=== PATIENT | male | born 2000 | race Caucasian/White ===

== ENCOUNTER 2022-05-11 15:06 | Emergency (ER) | payer OTHER, SELFPAY ==
--- NOTE | ~2022-05-11 | XR_ITS ---
EXAMINATION: XR toe 5th RT min 2V DATE: 05/11/2022 16:03 INDICATION: Right fifth toe pain TECHNIQUE: Dorsal plantar, lateral and oblique views of the right fifth toe were obtained. COMPARISON: None FINDINGS: Nondisplaced intra-articular fractures at the plantar/medial base of the fifth proximal phalanx. Alig nment remains near-anatomic with no significant fracture gap or incongruity at the proximal articular surface. No other fractures identified. Joint spaces are normal. IMPRESSION: Nondisplaced intra-articular fracture at the base of the right fifth possible thighs. Reviewed, dictated and finalized at location B. IMPRESSION: Nondisplaced intra-articular fracture at the base of the right fifth possible t highs.
[2022-05-11 15:19] VITALS: BP 140/93; PULSE 99; RESP 14; TEMP 35.9; O2SAT 100
[2022-05-11] MEDS: ACETAMINOPHEN 500 MG TABLET 1000 MG PO (15:49)
[2022-05-11 16:09] VITALS: TEMP 36.8
--- NOTE | 2022-05-11 16:20 | ED.LOWEXIN ---
HPI - Extremity Injury (Lower) General Chief Complaint: Extremity Injury, Lower Stated Complaint: toe injury Time Seen by Provider: 05/11/22 15:37 Source: RN notes reviewed History of Present Illness HPI Narrative: Patient presents emergency department from home for right toe pain. Patient states proximally 3 minutes prior to arrival he was walking with his flip-flops on when he stubbed his right toe on a railing he states he has had pain in the right toe since that time worse with walking states he not taking thing for pain he denies any other trauma or injury denies any numbness or tingling Related Data Allergies Allergy/AdvReac Type Severity Reaction Status Date / Time ibuprofen Allergy Mild HIVES Verified 05/11/22 15:35 Review of Systems Review of Systems: Gen.: Denies fevers or chills Musculoskeletal: See HPI Neuro: Denies numbness, tingling, weakness Skin: Denies rash Endo: Denies DM PMFSH Past Medical History Medical History (Updated 05/11/22 @ 16:22 by Scot Hurst DO) Patient denies significant medical history Social History Social History (Updated 05/11/22 @ 16:21 by Scot Hurst DO) Smoking status: Never smoker Exam Narrative: APPEARANCE: No acute distress, nontoxic, resting in bed Eyes: EOMI HEENT: Normocephalic, atraumatic, RESPIRATORY: No respiratory distress MUSCULOSKELETAl: The right fifth toe is tender to palpation with mild swelling and ecchymosis there is a small amount of dried blood over the medial aspect of the nail however the nail is intact and unable to be lifted, there is no tenderness of toes 1 through 4 there is no tenderness of the remainder of the foot dorsalis pedis pulse 2+ neurovascular intact NEURO: Awake and alert. Following commands, speech normal, no focal deficits SKIN:: Warm, dry. Normal Color no rash or lesions Course Course Emergency Course: Discussed with patient results of workup and diagnosis. Discussed need for follow-up with primary care, proper use of medication, and reasons to return to the emergency department. Patient understands and agrees to current treatment plan Vital Signs Vital signs: Vital Signs Temperature 96.7 F L 05/11/22 15:19 Pulse Rate 99 05/11/22 15:19 Respiratory Rate 14 05/11/22 15:19 Blood Pressure 140/93 H 05/11/22 15:19 Pulse Oximetry 100 05/11/22 15:19 Oxygen Delivery Room Air 05/11/22 15:19 Temperature 98.2 F 05/11/22 16:09 Pulse Rate 99 05/11/22 15:19 Respiratory Rate 14 05/11/22 15:19 Blood Pressure 140/93 H 05/11/22 15:19 Pulse Oximetry 100 05/11/22 15:19 Oxygen Delivery Room Air 05/11/22 15:19 MDM - Extremity Injury (Lower) Imaging Data Radiologist's impression: ITS Impressions Toe X-Ray 05/11/22 16:06 IMPRESSION: Nondisplaced intra-articular fracture at the base of the right fifth possible thighs. Discharge Plan Discharge Clinical Impression: Fracture of fifth toe, right, closed Patient Disposition: Home, Self-Care Condition: Stable Instructions: Antibiotic Form, Toe Fracture (ED) Additional Instructions: Return for increasing pain nodes or tingling of the extremities or any other symptoms or concern. Take [id number] Tylenol for pain as directed on the bottle Follow-up/Referrals: Thiago,ESAU Gann [Primary Care Provider] - 2 Days Time of Disposition: 16:26
== END 2022-05-11 16:40 | disposition home or self-care (01) ==
LOC: ANHED 16:40
PROVIDERS: Emergency Provider Emergency Medicine; PCP Physician Assistant
DX: S92.514A Nondisplaced fracture of proximal phalanx of right lesser toe(s), initial encounter for closed fracture (principal); W22.8XXA Striking against or struck by other objects, initial encounter
CPT/HCPCS: 73660; 99284; A9270

== ENCOUNTER 2024-01-15 19:38 | Emergency (ER) | payer OTHER, SELFPAY ==
[2024-01-15 19:48] VITALS: BP 146/93; PULSE 118; RESP 18; TEMP 36.7; O2SAT 99
[2024-01-15 20:35] LABS: Influenza A QL RT-PCR Negative (Negative); Influenza B QL RT-PCR Negative (Negative); RSV RNA, RT-PCR Positive (Negative); SARS-CoV-2 RNA PCR Negative (Negative)
--- NOTE | 2024-01-15 21:02 | ED.URI ---
HPI - URI/Sore Throat General Chief Complaint: Upper Respiratory Infection Stated Complaint: SOB Time Seen by Provider: 01/15/24 20:58 History of Present Illness HPI Narrative: Patient is a 23-year-old male presenting with nasal congestion, nausea, cough. States that his mom and grandma have had RSV this last week. States that he thinks it is spreading all around. His nose feels irritated and he has had a cough. He has vomited twice. No chest pain or shortness of breath. No abdominal pain. No leg swelling. No further complaints. Related Data Allergies Allergy/AdvReac Type Severity Reaction Status Date / Time ibuprofen Allergy Mild HIVES Verified 05/11/22 15:35 Review of Systems Review of Systems: All systems reviewed & are unremarkable except as noted in HPI and below PMFSH Past Medical History Medical History Patient denies significant medical history Social History Social History Smoking status: Never smoker Exam Narrative: GENERAL: Well-appearing, In no acute distress HEAD: Normocephalic, atraumatic. EYES: PERRLA and EOMI. ENT: + rhinorrhea, Mucous membranes moist. NECK: Supple. CHEST: Clear to auscultation. No respiratory distress. HEART: Regular rate and rhythm ABDOMEN: Soft, nontender, nondistended EXTREMITIES: Normal range of motion. SKIN: Warm, dry, no rash. NEURO: No focal deficits. Alert and oriented x3. PSYCH: Normal mood and affect. Course Vital Signs Vital signs: Vital Signs Temperature 98.1 F 01/15/24 19:48 Pulse Rate 118 H 01/15/24 19:48 Respiratory Rate 18 01/15/24 19:48 Blood Pressure 146/93 H 01/15/24 19:48 Pulse Oximetry 99 01/15/24 19:48 Oxygen Delivery Room Air 01/15/24 19:48 Temperature 98.1 F 01/15/24 19:48 Pulse Rate 118 H 01/15/24 19:48 Respiratory Rate 18 01/15/24 19:48 Blood Pressure 146/93 H 01/15/24 19:48 Pulse Oximetry 99 01/15/24 19:48 Oxygen Delivery Room Air 01/15/24 19:48 MDM - URI/Sore Throat MDM Narrative Medical decision making narrative: 23-year-old male presenting with URI symptoms. Vitals are stable. Exam is unremarkable. Patient is well-appearing, in no acute distress. He is positive for RSV. Discussed appropriate supportive care and PCP follow-up. Appropriate return precautions given. Patient is agreeable with this plan. Discharged in stable condition. Differential Diagnosis Differential diagnosis: Likely upper respiratory infection, viral infection and influenza Medical Records Attestation: I reviewed the patient's medical records. Lab Data Attestation: I reviewed the patient's lab results. Labs: Lab Results 01/15/24 Range/Units 19:54 Influenza A (RT-PCR) Negative (Negative) Influenza B (RT-PCR) Negative (Negative) RSV (RT-PCR) Positive A (Negative) SARS-CoV-2 RNA (RT-PCR) Negative (Negative) Critical Care Time Critical Care Time Critical Care Time: No Discharge Plan Discharge Clinical Impression: Respiratory syncytial virus (RSV) Patient Disposition: Home, Self-Care Condition: Stable Instructions: Antibiotic Form, RSV (Respiratory Syncytial Virus) Infection (ED) Additional Instructions: You tested positive for RSV today. Please use Tylenol and ibuprofen for body aches or fevers. You may use your inhaler as needed if you start wheezing. Follow-up with your PCP. If your symptoms suddenly worsen or other concerning symptoms arise, please return to the ER. Prescriptions: New albuterol sulfate 90 mcg/actuation HFA aerosol inhaler 1 inh inhalation QID PRN (Reason: shortness of breath or wheezing) Qty: 8.5 0RF Follow-up/Referrals: Thiago,ESAU Gann [Primary Care Provider] -
--- NOTE | 2024-01-16 11:06 | PC.NURSE ---
changed albuterol inhaler to albuterol neb ampules per pt request. Dr Vega verbal order RB okayed the change. Spoke with pharmacist at [facility].
== END 2024-01-15 21:39 | disposition home or self-care (01) ==
LOC: ANHED 21:13
PROVIDERS: Emergency Medicine; Emergency Provider Emergency Medicine; PCP Physician Assistant
DX: J22 Unspecified acute lower respiratory infection (principal); B97.4 Respiratory syncytial virus as the cause of diseases classified elsewhere; Z20.822 Contact with and (suspected) exposure to COVID-19
CPT/HCPCS: 87637; 99283

== ENCOUNTER 2024-07-07 19:26 | Emergency (ER) | payer OTHER, SELFPAY ==
[2024-07-07 20:11] VITALS: BP 144/80; PULSE 100; RESP 22; TEMP 36.6; O2SAT 96
--- NOTE | 2024-07-07 21:05 | PC.NURSE ---
Pt came up to desk stating his symptoms have resolved and he is going home. Pt leaves in NAD at 210
== END 2024-07-07 21:43 | disposition left against medical advice (07) ==
PROVIDERS: PCP Physician Assistant
DX: H57.12 Ocular pain, left eye (principal)
CPT/HCPCS: 99199

== ENCOUNTER 2024-08-10 22:47 | Emergency (ER) | payer OTHER, SELFPAY ==
--- NOTE | ~2024-08-10 | XR_ITS ---
Portable chest x-ray Comparison: 08/03/2005 Clinical History: Cough Findings: Lungs are clear, without focal consolidation or pleural effusion. Cardiomediastinal silho uette is stable. Bones and soft tissues are unremarkable. Impression: Normal chest. Reviewed, dictated and finalized at location . Impression: Normal chest.
[2024-08-10 23:08] VITALS: BP 140/86; PULSE 106; RESP 20; TEMP 36.6; O2SAT 100
--- NOTE | 2024-08-11 00:12 | ED.GENADULT ---
HPI - General Adult General Chief complaint: Anxiety Stated complaint: anxiety Time Seen by Provider: 08/10/24 23:27 History of Present Illness HPI narrative: 24-year-old male with autism presents to the emergency department for evaluation after having episodes agitation. Mother states that last night and tonight patient had episodes of agitation. Last night patient was in the y[place] and neighbors called the police. Tonight patient became agitated again but police did not need to be called. Patient does not have a primary care physician. Related Data Allergies Allergy/AdvReac Type Severity Reaction Status Date / Time ibuprofen Allergy Mild HIVES Verified 08/10/24 23:15 Review of Systems Review of Systems: All systems reviewed & are unremarkable except as noted in HPI and below PMFSH Past Medical History Medical History Patient denies significant medical history Social History Social History Smoking status: Never smoker Substance use type: does not use Exam Narrative: APPEARANCE: Well appearing, no pain, no distress, well-nourished. HEAD: normocephalic, atraumatic. EYES: PERRLA/EOMI, conjunctivae clear. NOSE: Normal no drainage EARS:TMS clear with good light reflex. THROAT: Pharynx clear, no exudate. NECK: Supple. No adenopathy, no masses. RESPIRATORY: Airway patent, respirations nonlabored. Clear to auscultation bilaterally, no rales, rhonchi, wheezing. CARDIOVASCULAR: Regular rate and rhythm without murmurs rubs or gallops. ABDOMINAL: Soft, nontender, nondistended, normal bowel sounds MUSCULOSKELETAL: Moves all extremities. Strength/ROM intact, No edema, No calf tenderness. NEURO: Alert. Cranial nerves II through XII intact. Good gait. Good coordination SKIN: Warm, dry. Normal Color Course Course Emergency Course: Patient had no episodes of agitation the emergency department. No evidence of underlying infection was identified. Patient was well-appearing at time of discharge. Vital Signs Vital signs: Vital Signs Temperature 97.8 F 08/10/24 23:08 Pulse Rate 106 H 08/10/24 23:08 Respiratory Rate 20 08/10/24 23:08 Blood Pressure 140/86 08/10/24 23:08 Pulse Oximetry 100 08/10/24 23:08 Oxygen Delivery Room Air 08/10/24 23:08 Temperature 97.8 F 08/10/24 23:08 Pulse Rate 89 08/11/24 02:13 Respiratory Rate 15 08/11/24 02:13 Blood Pressure 134/74 08/11/24 02:13 Pulse Oximetry 100 08/11/24 02:13 Oxygen Delivery Room Air 08/10/24 23:08 Medical Decision Making MDM Narrative Medical decision making narrative: 24-year-old male with history of autism and anxiety presented emergency department for evaluation for some increased agitation. Patient was well-appearing in the emergency department. No evidence of underlying infection. Differential Diagnosis Differential Diagnosis: Urinary tract infection, pneumonia, COVID a, anxiety, agitation, autism Vital Signs Vital Signs: Vital Signs Temperature 97.8 F 08/10/24 23:08 Pulse Rate 106 H 08/10/24 23:08 Respiratory Rate 20 08/10/24 23:08 Blood Pressure 140/86 08/10/24 23:08 Pulse Oximetry 100 08/10/24 23:08 Oxygen Delivery Room Air 08/10/24 23:08 Temperature 97.8 F 08/10/24 23:08 Pulse Rate 89 08/11/24 02:13 Respiratory Rate 15 08/11/24 02:13 Blood Pressure 134/74 08/11/24 02:13 Pulse Oximetry 100 08/11/24 02:13 Oxygen Delivery Room Air 08/10/24 23:08 Lab Data Lab results reviewed: Yes I reviewed the patient's lab results. Labs: Lab Results 08/11/24 Range/Units 00:18 Influenza A (RT-PCR) Negative (Negative) Influenza B (RT-PCR) Negative (Negative) RSV (RT-PCR) Negative (Negative) SARS-CoV-2 RNA (RT-PCR) Negative (Negative) Discharge Plan Discharge Clinical Impression: Autism, Anxiety, Agitation Patient Dis
[2024-08-11] MEDS: LORazepam (*CRX) 1 MG TABLET PO (00:48)
[2024-08-11 00:59] LABS: Influenza A QL RT-PCR Negative (Negative); Influenza B QL RT-PCR Negative (Negative); RSV RNA, RT-PCR Negative (Negative); SARS-CoV-2 RNA PCR Negative (Negative)
[2024-08-11 02:13] VITALS: BP 134/74; PULSE 89; RESP 15; O2SAT 100
== END 2024-08-11 02:14 | disposition home or self-care (01) ==
PROVIDERS: Emergency Provider Emergency Medicine
DX: R45.1 Restlessness and agitation (principal); F41.9 Anxiety disorder, unspecified; F84.0 Autistic disorder; Z11.52 Encounter for screening for COVID-19
CPT/HCPCS: 71045; 87637; 99283; A9270

== ENCOUNTER 2024-08-28 12:45 | Emergency (ER) | payer OTHER, SELFPAY ==
[2024-08-28 12:51] VITALS: BP 175/109; PULSE 95; RESP 20; TEMP 36.6; O2SAT 99
--- NOTE | 2024-08-28 13:15 | ED.EAR ---
HPI - Ear Problem General Chief complaint: Ear Stated complaint: R ear pain Time Seen by Provider: 08/28/24 12:47 History of Present Illness HPI Narrative: Patient is a 24-year-old male who presents ER with right ear pain. Ongoing over last week. Originally so she with a URI but then the ear pain persisted. He has been trying nasal decongestants as well as yawning and chewing gum try to alleviate discomfort in his right ear. No pain on left side. No difficulty hearing. No spinning dizziness. Concerned he may have infection. Related Data Allergies Allergy/AdvReac Type Severity Reaction Status Date / Time ibuprofen Allergy Mild HIVES Verified 08/28/24 13:22 Review of Systems Constitutional: Constitutional: Reports no additional constitutional complaints ENT: Denies vertigo, Denies dizziness, Reports nasal congestion and Reports sore throat Comments: right ear pain Cardiovascular: Cardiovascular: Reports no additional cardiovascular complaints Respiratory: Respiratory: Reports no additional respiratory complaints PMFSH Past Medical History Medical History Patient denies significant medical history Social History Social History Smoking status: Never smoker Substance use type: does not use Exam Narrative: GENERAL: Well-appearing, well-nourished, and in no acute distress. HEAD: Normocephalic, atraumatic. EYES: PERRL and EOMI. ENT: Mucous membranes moist. Bulging erythematous right tympanic membrane. Normal left TM. CHEST: Clear to auscultation. No respiratory distress. HEART: Regular rate and rhythm. Normal peripheral pulses. EXTREMITIES: Normal range of motion. No edema. NEURO: Alert and oriented x3. PSYCH: Normal mood and affect. Course Course Emergency Course: Discharge home with Augmentin and pain medication. Vital Signs Vital signs: Vital Signs Temperature 97.9 F 08/28/24 12:51 Pulse Rate 95 08/28/24 12:51 Respiratory Rate 20 08/28/24 12:51 Blood Pressure 175/109 H 08/28/24 12:51 Pulse Oximetry 99 08/28/24 12:51 Oxygen Delivery Room Air 08/28/24 12:51 Temperature 97.9 F 08/28/24 12:51 Pulse Rate 95 08/28/24 12:51 Respiratory Rate 20 08/28/24 12:51 Blood Pressure 175/109 H 08/28/24 12:51 Pulse Oximetry 99 08/28/24 12:51 Oxygen Delivery Room Air 08/28/24 12:51 Medical Decision Making Vital Signs Vital Signs: Vital Signs Temperature 97.9 F 08/28/24 12:51 Pulse Rate 95 08/28/24 12:51 Respiratory Rate 20 08/28/24 12:51 Blood Pressure 175/109 H 08/28/24 12:51 Pulse Oximetry 99 08/28/24 12:51 Oxygen Delivery Room Air 08/28/24 12:51 Temperature 97.9 F 08/28/24 12:51 Pulse Rate 95 08/28/24 12:51 Respiratory Rate 20 08/28/24 12:51 Blood Pressure 175/109 H 08/28/24 12:51 Pulse Oximetry 99 08/28/24 12:51 Oxygen Delivery Room Air 08/28/24 12:51 Discharge Plan Discharge Clinical Impression: Otitis media Patient Disposition: Home, Self-Care Condition: Stable Instructions: Antibiotic Form, Earache (ED) Additional Instructions: Return to the ER if you have fever over 101F, you cannot keep down food/water, or you have other concerns. Prescriptions: New hydrocodone-acetaminophen 5-325 mg tablet 1 tablet PO Q6H PRN (Reason: pain, moderate) Qty: 10 0RF amoxicillin-pot clavulanate 875-125 mg tablet 1 tablet PO Q12H Qty: 20 0RF No Action lorazepam [Ativan] 0.5 mg tablet 0.5 mg PO BID PRN (Reason: agitation) Qty: 14 0RF Follow-up/Referrals: Opal Magana DO [Physician] - 1 Week PHYSICIAN,WATER PU[employer] INSTALLER [Primary Care Provider] -
[2024-08-28 13:23] VITALS: BP 149/88; PULSE 106; RESP 15; O2SAT 98
[2024-08-28 13:38] VITALS: BP 143/85; PULSE 94; RESP 17; TEMP 36.4; O2SAT 97
== END 2024-08-28 13:40 | disposition home or self-care (01) ==
LOC: ANHED 13:30
PROVIDERS: Emergency Provider Emergency Medicine
DX: H66.91 Otitis media, unspecified, right ear (principal)
CPT/HCPCS: 99283

== ENCOUNTER 2024-11-06 13:20 | Emergency (ER) | payer OTHER, SELFPAY ==
--- NOTE | ~2024-11-06 | CT_ITS ---
EXAMINATION: CT abdomen pelvis w con DATE: 11/06/2024 16:07 INDICATION: Left inguinal pain TECHNIQUE: Computed tomography (CT) of the abdomen and pelvis was performed with 100 mL Omnipaque-350 intravenous contrast. Automated exposure control and iterative reconstruction technique were employe d. The dose-length product was 1780.65 mGy-cm. COMPARISON: None FINDINGS: Lung bases are clear. Heart size is normal. No pericardial or pleural effusion. Diffuse hepatic steat osis with focal sparing along the gallbladder fossa. Gallbladder, spleen, pancreas, bilateral adrenal glands and kidneys are normal. Bowels including the appendix are normal. No free intraperitoneal gas or fluid. No pathologically enlarged abdominal or pelvic lymphadenopathy. No inguinal hernia. Mild t horacic spondylosis with chronic appearing minimal to mild anterior wedging of T8-T11. IMPRESSION: 1. No acute intracranial process. 2. Diffuse hepatic steatosis. Reviewed, dictated and finalized at location A. RINARY SURGERY TECHNICIAN
[2024-11-06 13:47] VITALS: BP 158/93; PULSE 109; RESP 17; TEMP 36.5; O2SAT 97
--- NOTE | 2024-11-06 14:23 | ED_ITS ---
HPI - Abdominal Pain General Chief Complaint: Urogenital-Male Stated Complaint: R sided groin pain Time Seen by Provider: 11/06/24 13:55 History of Present Illness HPI narrative: Pt presents wioth p[ain in left inguinal area for several days. Pt denies dysuria or frequency. Pt says worse with movement. Pt denies vomiting or diarrhea or constipation. Related Data Allergies Allergy/AdvReac Type Severity Reaction Status Date / Time ibuprofen Allergy Mild HIVES Verified 08/28/24 13:22 Review of Systems 2 Review of Systems: All systems reviewed & are unremarkable except as noted in HPI and below PMFSH Past Medical History Medical History Patient denies significant medical history Social History Social History Smoking status: Never smoker Substance use type: does not use Exam 2 Const: General: healthy appearing and no acute distress Nutritional Appearance: well nourished Orientation/consciousness: patient oriented x3 Limitations: no limitations Resp: Effort & Inspection: normal respiratory effort Auscultation: clear to auscultation bilaterally Cardio: Rate: regular rate Rhythm: regular rhythm GI: GI Palp: Yes Soft to palpation and Yes Tenderness to palpation present (GI) (left inguinal groove without definite hernia) Auscultation: normal bowel sounds : General: Yes bladder normal to palpation Male General Exam: Yes normal external exam Scrotum: scrotum normal Testes: Testes normal Skin: General skin exam: normal color Wounds: no wounds Neuro: General: patient oriented x3, moves all extremities, no focal motor deficits and CN's II-XI intact bilaterally Speech: normal speech Extrem: General: normal to inspection and no clubbing, cyanosis or edema Psych: Mental Status: mental status grossly normal Affect: normal affect Attitude: cooperative Course Vital Signs Vital signs: Vital Signs Temperature 97.7 F 11/06/24 13:47 Pulse Rate 109 H 11/06/24 13:47 Respiratory Rate 17 11/06/24 13:47 Blood Pressure 158/93 H 11/06/24 13:47 Pulse Oximetry 97 11/06/24 13:47 Temperature 97.6 F 11/06/24 15:27 Pulse Rate 89 11/06/24 15:27 Respiratory Rate 16 11/06/24 15:27 Blood Pressure 122/77 11/06/24 15:27 Pulse Oximetry 100 11/06/24 15:27 MDM - Abdominal Pain MDM Narrative Medical decision making narrative: Pt hasw left inguina pain. could not palpate a definite hernia but will get labs UA and scan to rule out hernia. ct neg, labs unremarkable. UA +. home on antibiotics. Lab Data 11/06/24 15:12 11/06/24 15:12 Labs: Lab Results 11/06/24 11/06/24 Range/Units 15:12 16:40 WBC 10.3 H (4.5-10.0) K/mm3 RBC 5.67 (4.6-6.20) M/mm3 Hgb 16.0 (14.0-18.0) g/dL Hct 47.0 (42.0-52.0) % MCV 82.9 (80-100) fl MCH 28.2 (26-34) pg MCHC 34.0 (32-36) g/dl RDW 12.7 (11.5-14.5) % Plt Count 301 (150-375) k/mm3 MPV 10.1 (7.4-10.4) fl Immature Gran % (Auto) 0.3 (0-0.5) % Neut % (Auto) 70.8 (45.5-73.1) % Lymph % (Auto) 18.1 L (18.3-44.2) % [place] % (Auto) 6.3 (2.6-8.5) % Eos % (Auto) 3.6 (0-4.4) % Baso % (Auto) 0.9 (0.2-1.2) % Lymph # (Auto) 1.87 (0.9-3.2) K/mm3 [place] # (Auto) 0.7 H (0.1-0.6) K/mm3 Eos # (Auto) 0.4 H (0-0.3) K/mm3 Baso # (Auto) 0.1 (0.0-0.1) K/mm3 Abs Immat Gran (auto) 0.03 (0.00-0.031) K/mm3 Absolute Neuts (auto) 7.3 H (1.3-6.7) K/mm3 Absolute Nucleated RBC 0.000 (0.0-0.012) K/mm3 Nucleated RBC % 0.0 (0.0-0.2) % Sodium 140 (137-145) mmol/L Potassium 4.0 (3.4-5.0) mmol/L Chloride 105 (98-107) mmol/L Carbon Dioxide 26 (22-30) mmol/L Anion Gap 9 (4-12) mmol/L BUN 17 (9-20) mg/dL Creatinine 0.90 (0.7-1.3) mg/dL Estim Creat Clear Calc Not Reportable Estimated GFR > 60 (59 - ) Glucose 126 H (65-110) mg/dL Calcium 9.4 (8.4-10.2) mg/dL Total Bilirubin 0.8 (0.2-1.3) mg/dL AST 40 (17-59) U/L ALT 75 H (6-50) U/L Alkaline Phosphatase 63 (38-126) U/L Total Protein 8.0 (6.3-8.2) g/dL Albumin 4.8 (3.5-5.1) g/dL Urine Color Yellow (Yellow) Urine Appearance Clear (Clear) Urine pH 6.5 (5.0-9.0) Ur Specific [place] > 1.045 H (1.001-1.035) Urine Protein Negative (Negative) mg/dL Urine Glucose (UA) Negative (Negative) mg/dL Urine Ketones Negative (Negative) mg/dL Ur Blood (Man) Negative (Negative) Urine Nitrate Negative (Negative) Urine Bilirubin Negative (Negative) Urine Urobilinogen 1.0 (<2.0) mg/dL Leukocyte Esterase Rfl Trace H (Negative) MAURICIO/UL Urine RBC 0-2 (0-2) /hpf Urine WBC 11-20 H (0-3) /hpf Ur Squamous Epith Cells None seen (Few) /hpf Urine Bacteria None seen /hpf Urine Casts 0-2 Imaging Data Radiologist's impression: ITS Impressions Abdomen/Pelvis CT 11/06/24 16:29 IMPRESSION: 1. No acute intracranial process. 2. Diffuse hepatic steatosis. Discharge Plan Discharge Clinical Impression: Urinary tract infection Patient Disposition: Home, Self-Care Condition: Stable Instructions: Antibiotic Form, Urinary Tract Infection in Men (ED) Patient Language: [place] Prescriptions: New cefdinir 300 mg capsule 300 mg PO Q12H Qty: 10 0RF No Action lorazepam [Ativan] 0.5 mg tablet 0.5 mg PO BID PRN (Reason: agitation) Qty: 14 0RF hydrocodone-acetaminophen 5-325 mg tablet 1 tablet PO Q6H PRN (Reason: pain, moderate) Qty: 10 0RF amoxicillin-pot clavulanate 875-125 mg tablet 1 tablet PO Q12H Qty: 20 0RF Follow-up/Referrals: [place],Yogi Davis MD [Primary Care Provider] -
[2024-11-06 15:19] LABS: Basophils Absolute Auto 0.1 K/mm3 (0.0-0.1); Basophils Percent Auto 0.9 % (0.2-1.2); Eosinophils Absolute Auto 0.4 K/mm3 (0-0.3); Eosinophils Percent Auto 3.6 % (0-4.4); Immature Granulocyte Absolute 0.03 K/mm3 (0.00-0.031); Immature Granulocyte Percent A 0.3 % (0-0.5); Lymphocytes Absolute Auto 1.87 K/mm3 (0.9-3.2); Lymphocytes Percent Auto 18.1 % (18.3-44.2); Mean Corpuscular Hemoglobin 28.2 pg (26-34); Mean Corpuscular Volume 82.9 fl (80-100); Mean Platelet Volume 10.1 fl (7.4-10.4); Monocytes Absolute Auto 0.7 K/mm3 (0.1-0.6); Monocytes Percent Auto 6.3 % (2.6-8.5); Neutrophils Absolute Auto 7.3 K/mm3 (1.3-6.7); Neutrophils Percent Auto 70.8 % (45.5-73.1); Platelet Count Result 301 k/mm3 (150-375); Red Blood Count 5.67 M/mm3 (4.6-6.20); Red Cell Distribution Width 12.7 % (11.5-14.5); White Blood Count 10.3 K/mm3 (4.5-10.0)
[2024-11-06 15:27] VITALS: BP 122/77; PULSE 89; RESP 16; TEMP 36.4; O2SAT 100
--- NOTE | 2024-11-06 15:28 | PC.NURSE ---
Patient declined a straight catheter for a urine specimen.
[2024-11-06 15:46] LABS: Alanine Aminotransferase 75 U/L (6-50); Albumin Level 4.8 g/dL (3.5-5.1); Alkaline Phosphatase 63 U/L (38-126); Anion Gap 9 mmol/L (4-12); Aspartate Amino Transferase 40 U/L (17-59); Bilirubin,Total 0.8 mg/dL (0.2-1.3); Blood Urea Nitrogen 17 mg/dL (9-20); Calcium 9.4 mg/dL (8.4-10.2); Carbon Dioxide 26 mmol/L (22-30); Chloride 105 mmol/L (98-107); Estimated Glomerular Filt Rate > 60; Glucose 126 mg/dL (65-110); Sodium 140 mmol/L (137-145)
[2024-11-06] MEDS: SODIUM CHLORIDE 0.9% IV 1,000 ML 999 ML IV CONT (15:50)
[2024-11-06 17:11] LABS: Add Urine Microscopic? YES; Appearance Urine Clear (Clear); Bacteria Urine None Seen /hpf; Bilirubin Urine Negative (Negative); Blood Urine Negative (Negative); Color Urine Yellow (Yellow); Glucose Urine UA Negative (Negative); Ketones Urine Negative (Negative); Leukocyte Esterase Ur Trace LEU/UL (Negative); Nitrate Urine Negative (Negative); Non Pathogenic Casts 0-2; Protein Urine Negative (Negative); RBC Urine 0-2 /hpf (0-2); Specific Grav Ur > 1.045 (1.001-1.035); Squamous Epithelial Cell Urine None Seen /hpf (Few); pH Urine 6.5 (5.0-9.0)
[2024-11-06 17:37] VITALS: BP 132/71; PULSE 68; RESP 14; TEMP 36.5; O2SAT 99
== END 2024-11-06 17:38 | disposition home or self-care (01) ==
PROVIDERS: Emergency Provider Emergency Medicine; PCP Family Medicine
DX: N39.0 Urinary tract infection, site not specified (principal); K76.0 Fatty (change of) liver, not elsewhere classified
CPT/HCPCS: 36415; 74177; 80053; 81001; 85025; 87086; 96360; 99284; J7030; Q9967

== ENCOUNTER 2024-11-30 23:33 | Emergency (ER) | payer OTHER, SELFPAY ==
--- NOTE | ~2024-11-30 | CT_ITS ---
EXAMINATION: CT abdomen pelvis w con DATE: 12/01/2024 03:37 INDICATION: Right lower quadrant abdominal pain. TECHNIQUE: Computed tomography (CT) of the abdomen and pelvis was performed with 100 mL Omnipaque 350 intravenous contrast. Automated exposure control and iterative reconstruction technique were employe d. The dose-length product was 2052.27 mGy-cm. COMPARISON: CT abdomen and pelvis 11/06/2024 FINDINGS: The visualized portions of the lung bases are clear without pneumonia or pleural effusion. The heart size is normal. No pericardial effusion. There is diffuse hepatic steatosis. The gallbladde r, spleen, pancreas, adrenal glands, and kidneys are normal. There are no dilated loops of bowel. The appendix is normal. There are no pathologically enlarged lymph nodes. There is no free intraperitone al fluid. There is mild thoracic and lumbar spondylosis. IMPRESSION: 1. Diffuse hepatic steatosis. Reviewed, dictated and finalized at location A. [place] SOLAR ADVISOR
[2024-11-30 23:35] VITALS: BP 151/77; PULSE 91; RESP 20; TEMP 36.4; O2SAT 98
[2024-12-01 00:01] LABS: Add Urine Microscopic? NO; Appearance Urine Clear (Clear); Bilirubin Urine Negative (Negative); Blood Urine Negative (Negative); Color Urine Yellow (Yellow); Glucose Urine UA Negative (Negative); Ketones Urine Negative (Negative); Leukocyte Esterase Ur Negative LEU/UL (Negative); Nitrate Urine Negative (Negative); Protein Urine Negative (Negative); Specific Grav Ur 1.024 (1.001-1.035)
--- NOTE | 2024-12-01 02:35 | ED_ITS ---
HPI - General Adult General Chief complaint: Abdominal Pain Stated complaint: uti? Time Seen by Provider: 12/01/24 01:44 History of Present Illness HPI narrative: Patient 24-year-old gentleman who presents emergency department with chief complaint of right lower quadrant abdominal pain patient reports he has pain in the right inguinal area reports he is concerned that he may have a UTI as he had 1 last month. Patient states that he has no fever denies penile discharge denies scrotal pain Related Data Allergies Allergy/AdvReac Type Severity Reaction Status Date / Time ibuprofen Allergy Mild HIVES Verified 11/30/24 23:38 Review of Systems 2 Review of Systems: A 10 system review of systems was completed on the patient and is negative except for what is stated in the HPI. Nursing and ancillary documentation was reviewed. PMFSH Past Medical History Medical History Patient denies significant medical history Social History Social History Smoking status: Never smoker Substance use type: does not use Exam 2 Narrative: GENERAL: Well-appearing, well-nourished, and in no acute distress. HEAD: Normocephalic, atraumatic. EYES: PERRLA and EOMI. ENT: Nares clear, no rhinorrhea or epistaxis. Mucous membranes moist. NECK: Supple. CHEST: Clear to auscultation. No respiratory distress. HEART: Regular rate and rhythm. No murmur heard. Normal peripheral pulses. ABDOMEN: Soft, tenderness in the right lower quadrant right inguinal area, nondistended, normal active bowel sounds. : No scrotal tenderness, no testicle tenderness no erythema no penile discharge EXTREMITIES: Normal range of motion. No edema. SKIN: Warm, dry, no rash. NEURO: No focal deficits. Alert and oriented x3. PSYCH: Normal mood and affect. Course Vital Signs Vital signs: Vital Signs Temperature 36.4 C L 11/30/24 23:35 Pulse Rate 91 11/30/24 23:35 Respiratory Rate 20 11/30/24 23:35 Blood Pressure 151/77 H 11/30/24 23:35 Pulse Oximetry 98 11/30/24 23:35 Oxygen Delivery Room Air 11/30/24 23:35 Temperature 36.4 C L 11/30/24 23:35 Pulse Rate 91 11/30/24 23:35 Respiratory Rate 20 11/30/24 23:35 Blood Pressure 151/77 H 11/30/24 23:35 Pulse Oximetry 98 11/30/24 23:35 Oxygen Delivery Room Air 11/30/24 23:35 Medical Decision Making MDM Narrative Medical decision making narrative: Differential diagnosis include intra-abdominal infection, UTI, ureterolithiasis, hernia CT scan of the abdomen pelvis showed no acute abnormality urinalysis was within normal limits CBC and CMP were within normal limits Vital Signs Vital Signs: Vital Signs Temperature 36.4 C L 11/30/24 23:35 Pulse Rate 91 11/30/24 23:35 Respiratory Rate 20 11/30/24 23:35 Blood Pressure 151/77 H 11/30/24 23:35 Pulse Oximetry 98 11/30/24 23:35 Oxygen Delivery Room Air 11/30/24 23:35 Temperature 36.4 C L 11/30/24 23:35 Pulse Rate 91 11/30/24 23:35 Respiratory Rate 20 11/30/24 23:35 Blood Pressure 151/77 H 11/30/24 23:35 Pulse Oximetry 98 11/30/24 23:35 Oxygen Delivery Room Air 11/30/24 23:35 Lab Data 12/01/24 02:57 12/01/24 02:58 Labs: Lab Results 11/30/24 12/01/24 12/01/24 Range/Units 23:48 02:57 02:58 WBC 10.0 (4.5-10.0) K/mm3 RBC 5.11 (4.6-6.20) M/mm3 Hgb 14.3 (14.0-18.0) g/dL Hct 42.7 (42.0-52.0) % MCV 83.6 (80-100) fl MCH 28.0 (26-34) pg MCHC 33.5 (32-36) g/dl RDW 12.4 (11.5-14.5) % Plt Count 253 (150-375) k/mm3 MPV 10.1 (7.4-10.4) fl Immature Gran % (Auto) 0.3 (0-0.5) % Neut % (Auto) 53.8 (45.5-73.1) % Lymph % (Auto) 32.1 (18.3-44.2) % [place] % (Auto) 8.5 (2.6-8.5) % Eos % (Auto) 4.5 H (0-4.4) % Baso % (Auto) 0.8 (0.2-1.2) % Lymph # (Auto) 3.19 (0.9-3.2) K/mm3 [place] # (Auto) 0.9 H (0.1-0.6) K/mm3 Eos # (Auto) 0.5 H (0-0.3) K/mm3 Baso # (Auto) 0.1 (0.0-0.1) K/mm3 Abs Immat Gran (auto) 0.03 (0.00-0.031) K/mm3 Absolute Neuts (auto) 5.4 (1.3-6.7) K/mm3 Absolute Nucleated RBC 0.000 (0.0-0.012) K/mm3 Nucleated RBC % 0.0 (0.0-0.2) % Sodium 138 (137-145) mmol/L Potassium 4.0 (3.4-5.0) mmol/L Chloride 103 (98-107) mmol/L Carbon Dioxide 28 (22-30) mmol/L Anion Gap 7 (4-12) mmol/L BUN 21 H (9-20) mg/dL Creatinine 0.85 (0.7-1.3) mg/dL Estim Creat Clear Calc 156 ml/min Estimated GFR > 60 (59 - ) Glucose 97 (65-110) mg/dL Calcium 8.6 (8.4-10.2) mg/dL Total Bilirubin 0.5 (0.2-1.3) mg/dL AST 26 (17-59) U/L ALT 56 H (6-50) U/L Alkaline Phosphatase 59 (38-126) U/L Total Protein 6.0 L (6.3-8.2) g/dL Albumin 4.1 (3.5-5.1) g/dL Lipase 62 (23-300) U/L Urine Color Yellow (Yellow) Urine Appearance Clear (Clear) Urine pH 6.0 (5.0-9.0) Ur Specific [place] 1.024 (1.001-1.035) Urine Protein Negative (Negative) mg/dL Urine Glucose (UA) Negative (Negative) mg/dL Urine Ketones Negative (Negative) mg/dL Ur Blood (Man) Negative (Negative) Urine Nitrate Negative (Negative) Urine Bilirubin Negative (Negative) Urine Urobilinogen 1.0 (<2.0) mg/dL Leukocyte Esterase Rfl Negative (Negative) MAURICIO/UL Discharge Plan Discharge Clinical Impression: Abdominal pain, acute, right lower quadrant Patient Disposition: Home, Self-Care Condition: Stable Instructions: Antibiotic Form, Abdominal Pain (ED) Patient Language: Malawian Prescriptions: No Action lorazepam [Ativan] 0.5 mg tablet 0.5 mg PO BID PRN (Reason: agitation) Qty: 14 0RF hydrocodone-acetaminophen 5-325 mg tablet 1 tablet PO Q6H PRN (Reason: pain, moderate) Qty: 10 0RF amoxicillin-pot clavulanate 875-125 mg tablet 1 tablet PO Q12H Qty: 20 0RF cefdinir 300 mg capsule 300 mg PO Q12H Qty: 10 0RF Follow-up/Referrals: [place],Yogi Davis MD [Primary Care Provider] - Time of Disposition: 06:39
[2024-12-01 03:05] LABS: Basophils Absolute Auto 0.1 K/mm3 (0.0-0.1); Basophils Percent Auto 0.8 % (0.2-1.2); Eosinophils Absolute Auto 0.5 K/mm3 (0-0.3); Eosinophils Percent Auto 4.5 % (0-4.4); Hematocrit 42.7 % (42.0-52.0); Hemoglobin 14.3 g/dL (14.0-18.0); Immature Granulocyte Absolute 0.03 K/mm3 (0.00-0.031); Immature Granulocyte Percent A 0.3 % (0-0.5); Lymphocytes Absolute Auto 3.19 K/mm3 (0.9-3.2); Lymphocytes Percent Auto 32.1 % (18.3-44.2); Mean Corpuscular HGB Conc 33.5 g/dl (32-36); Mean Corpuscular Volume 83.6 fl (80-100); Mean Platelet Volume 10.1 fl (7.4-10.4); Monocytes Absolute Auto 0.9 K/mm3 (0.1-0.6); Monocytes Percent Auto 8.5 % (2.6-8.5); Neutrophils Absolute Auto 5.4 K/mm3 (1.3-6.7); Neutrophils Percent Auto 53.8 % (45.5-73.1); Platelet Count Result 253 k/mm3 (150-375); Red Blood Count 5.11 M/mm3 (4.6-6.20); Red Cell Distribution Width 12.4 % (11.5-14.5)
[2024-12-01 03:14] LABS: Lipase 62 U/L (23-300)
[2024-12-01 03:16] LABS: Alanine Aminotransferase 56 U/L (6-50); Albumin Level 4.1 g/dL (3.5-5.1); Alkaline Phosphatase 59 U/L (38-126); Anion Gap 7 mmol/L (4-12); Aspartate Amino Transferase 26 U/L (17-59); Bilirubin,Total 0.5 mg/dL (0.2-1.3); Blood Urea Nitrogen 21 mg/dL (9-20); Calcium 8.6 mg/dL (8.4-10.2); Carbon Dioxide 28 mmol/L (22-30); Chloride 103 mmol/L (98-107); Estimated CRCL calculation 156 ml/min; Estimated Glomerular Filt Rate > 60; Glucose 97 mg/dL (65-110); Sodium 138 mmol/L (137-145)
[2024-12-01 05:49] VITALS: BP 142/72; PULSE 93; RESP 14; O2SAT 100
== END 2024-12-01 07:14 | disposition home or self-care (01) ==
PROVIDERS: Emergency Provider Emergency Medicine; PCP Family Medicine
DX: R10.31 Right lower quadrant pain (principal)
CPT/HCPCS: 36415; 74177; 80053; 81003; 83690; 85025; 99284; Q9967

== ENCOUNTER 2024-12-22 19:39 | Emergency (ER) | payer OTHER, SELFPAY ==
--- NOTE | ~2024-12-22 | XR_ITS ---
EXAMINATION: XR chest 2V DATE: 12/23/2024 00:24 INDICATION: Cough. TECHNIQUE: Frontal and lateral views of the chest were obtained. COMPARISON: Chest single view 08/11/2024, CT abdomen and pelvis 12/01/2024 FINDINGS: There is no pneumonia, pleural effusion, or pneumothorax. The heart size is normal. IMPRESSION: 1. No acute cardiopulmonary disease. Reviewed, dictated and finalized at location A. E PARTS INSPECTOR
--- OUTSIDE RECORDS SUMMARY | 2024-12-22 19:42 | XMS_ITS | Clinical Summary ---
Author Organization [facility] Address [address] [place] [address]. [place], [place] [id number] [place] [id number] Care Team Providers Care Operator Control Room Name Role Phone Yogi Frazier DO Primary Care Provider [phone] Allergies Active Allergy Reactions Criticality Noted Date Comments Ibuprofen Hives 08/18/2024 Social History Tobacco Use Types Packs/Day Years Used Date Smoking Tobacco: Never Passive Smoke Exposure: Past Smokeless Tobacco: Never Tobacco Cessation:Counseling Given: Not Answered Alcohol Use Standard Drinks/Week Comments Yes 0 (1 standard drink = 0.6 oz pur e alcohol) every couple days 1 beer Sex and Gender Information Value Date Recorded Sex Assigned at Not on file Legal Sex Male 8:19 PM CDT Gender Identity Not on file Sexual Orientation Not on file Last Filed Vital Signs Vital Sign Reading Time Taken Comments Blood Pressure 142/88 08/18/2024 9:00 AM CDT Pulse 90 08/18/2024 9:00 AM CDT Temperature 36.9 ??C (98.5 ??F) 08/18/2024 6:14 AM CD T Respiratory Rate 16 08/18/2024 9:00 AM CDT Oxygen Saturation 97% 08/18/2024 9:00 AM CDT Inhaled Oxygen Concentration - - Weight 123.8 kg (273 lb) 08/18/2024 6:14 AM CDT Height 180.3 cm (5' 11 ) 08/18/2024 6:14 AM CDT Body Mass Index 38.08 08/18/2024 6:14 AM CDT Plan of Treatment Health Maintenance Due Date Last Done Comments Annual Physical 2001 HPV Vaccines (1 - Male 3-dose series) 2013 Hepatitis C 2016 Meningococcal B Vaccine (2 of 2 - Bexsero SCDM 2-dose series) 10/28/2016 04/28/2016 DTaP, Tdap and Td Vaccines (7 - Td or Tdap) 06/16/2022 06/16/2012, 06/29/2003, 01/20/2000, Additional history exists COVID-19 Vaccine ( season) 2024 04/28/2021, 04/07/2021 Influenza Adult (#1) 2024 09/10/2023, 09/10/2022, 10/02/2020, Additional history exists Hepatitis B Vaccines Completed 05/20/1999, 1998, 1998 Meningococcal Vaccine Completed 04/28/2016, 012 Pneumococcal Vaccine: Pediatrics (0 to 5 Years) and At-Risk Patients (6 to 64 Years) Aged Out No longer eligible based on patient's age to complete this topic RSV Immunizations Under 20 Months Aged Out No longer eligible based on patient's age to complete this topic Insurance [place] Care Teams Operator Control Room Relationship Specialty Start Date End Date Yogi Frazier DO [address] [place] [id number] PCP - General FAMILY PRACTICE 08/18/24
[2024-12-22 19:56] VITALS: BP 143/89; PULSE 100; RESP 18; TEMP 36.3; O2SAT 99
--- OUTSIDE RECORDS SUMMARY | 2024-12-22 23:23 | XMS_ITS | Clinical Summary ---
Author Organization [facility] Address [address] [place] [address]. [place], [place] [id number] [place] [address] Care Team Providers Care Technical Operations Vice President Name Role Phone Yogi Frazier DO Primary Care Provider [phone] Allergies Active Allergy Reactions Criticality Noted Date [...] patient's age to complete this topic Insurance [employer] Care Teams Technical Operations Vice President Relationship Specialty Start Date End Date Yogi Frazier DO [address] [place] [id number] PCP - General FAMILY PRACTICE 08/18/24
[2024-12-22 23:47] VITALS: O2SAT 96
[2024-12-22 23:48] VITALS: BP 128/52; PULSE 108; RESP 17; O2SAT 98
[2024-12-22 23:51] LABS: Basophils Percent Auto 0.3 % (0.2-1.2); Eosinophils Percent Auto 0.4 % (0-4.4); Hematocrit 44.8 % (42.0-52.0); Hemoglobin 15.1 g/dL (14.0-18.0); Immature Granulocyte Absolute 0.02 K/mm3 (0.00-0.031); Immature Granulocyte Percent A 0.3 % (0-0.5); Lymphocytes Absolute Auto 1.43 K/mm3 (0.9-3.2); Lymphocytes Percent Auto 20.4 % (18.3-44.2); Mean Corpuscular HGB Conc 33.7 g/dl (32-36); Mean Platelet Volume 10.3 fl (7.4-10.4); Monocytes Absolute Auto 0.5 K/mm3 (0.1-0.6); Monocytes Percent Auto 7.1 % (2.6-8.5); Neutrophils Percent Auto 71.5 % (45.5-73.1); Platelet Count Result 198 k/mm3 (150-375); Red Cell Distribution Width 12.7 % (11.5-14.5)
[2024-12-22] MEDS: IPRATROPIUM 0.5 MG/ALBUTEROL SULFATE 2.5 MG AMPUL.NEB 3 ML INHALATION (23:54)
[2024-12-22 23:55] VITALS: PULSE 104; RESP 20
[2024-12-23 00:02] VITALS: PULSE 105; RESP 20
[2024-12-23 00:02] LABS: Alanine Aminotransferase 67 U/L (6-50); Albumin Level 4.2 g/dL (3.5-5.1); Alkaline Phosphatase 63 U/L (38-126); Anion Gap 12 mmol/L (4-12); Aspartate Amino Transferase 37 U/L (17-59); Bilirubin,Total 0.6 mg/dL (0.2-1.3); Blood Urea Nitrogen 21 mg/dL (9-20); Calcium 8.6 mg/dL (8.4-10.2); Carbon Dioxide 25 mmol/L (22-30); Chloride 101 mmol/L (98-107); Estimated CRCL calculation 150 ml/min; Estimated Glomerular Filt Rate > 60; Glucose 86 mg/dL (65-110); Potassium 3.5 mmol/L (3.4-5.0); Sodium 138 mmol/L (137-145)
--- NOTE | 2024-12-23 00:21 | PC.NURSE ---
Patient taken to xray via stretcher at this time.
--- NOTE | 2024-12-23 01:02 | ED_ITS ---
HPI - Asthma General Chief Complaint: Asthma Stated Complaint: dry heaving, sob Time Seen by Provider: 12/22/24 23:15 History of Present Illness HPI Narrative: Patient is a 24-year-old male who presents ER with cough and shortness of breath. Reports him his mother had a viral infection over last week. He has had increased shortness of breath today and has frequent coughing mild occasionally cause him to vomit. No fevers or chills. No chest discomfort. Patient is concerned that he is having an asthma attack. Related Data Allergies Allergy/AdvReac Type Severity Reaction Status Date / Time ibuprofen Allergy Mild HIVES Verified 12/22/24 23:46 Review of Systems 2 Review of Systems: All systems reviewed & are unremarkable except as noted in HPI and below Constitutional: Constitutional: Reports no additional constitutional complaints Cardiovascular: Cardiovascular: Reports no additional cardiovascular complaints Respiratory: Respiratory: Reports no additional respiratory complaints Gastrointestinal: Gastrointestinal: Reports no additional gastrointestinal complaints PMFSH Past Medical History Medical History (Updated 12/23/24 @ 01:09 by London Adan MD) Asthma Anxiety Autism Social History Social History Smoking status: Never smoker Substance use type: does not use Exam 2 Narrative: GENERAL: Well-appearing, well-nourished, and in no acute distress. HEAD: Normocephalic, atraumatic. ENT: Mucous membranes moist. CHEST: Scant wheezing, may be mucous plugging. No respiratory distress. HEART: Regular rate and rhythm. Normal peripheral pulses. EXTREMITIES: Normal range of motion. No edema. SKIN: Warm, dry, no rash. NEURO: Alert and oriented x3. PSYCH: Normal mood and affect. Course Course Emergency Course: Normal labs and chest x-ray. Discussed with patient. Improved after nebulizer treatment. Will discharge home with prednisone and neb refill, patient does had PND causing increased cough. Vital Signs Vital signs: Vital Signs Temperature 97.4 F L 12/22/24 19:56 Pulse Rate 100 12/22/24 19:56 Respiratory Rate 18 12/22/24 19:56 Blood Pressure 143/89 H 12/22/24 19:56 Pulse Oximetry 99 12/22/24 19:56 Oxygen Delivery Room Air 12/22/24 19:56 Temperature 97.4 F L 12/22/24 19:56 Pulse Rate 105 H 12/23/24 00:02 Respiratory Rate 20 12/23/24 00:02 Blood Pressure 128/52 L 12/22/24 23:48 Pulse Oximetry 98 12/22/24 23:48 Oxygen Delivery Room Air 12/22/24 23:47 MDM - Asthma Lab Data 12/22/24 23:46 12/22/24 23:46 Labs: Lab Results 12/22/24 Range/Units 23:46 WBC 7.0 (4.5-10.0) K/mm3 RBC 5.40 (4.6-6.20) M/mm3 Hgb 15.1 (14.0-18.0) g/dL Hct 44.8 (42.0-52.0) % MCV 83.0 (80-100) fl MCH 28.0 (26-34) pg MCHC 33.7 (32-36) g/dl RDW 12.7 (11.5-14.5) % Plt Count 198 (150-375) k/mm3 MPV 10.3 (7.4-10.4) fl Immature Gran % (Auto) 0.3 (0-0.5) % Neut % (Auto) 71.5 (45.5-73.1) % Lymph % (Auto) 20.4 (18.3-44.2) % [place] % (Auto) 7.1 (2.6-8.5) % Eos % (Auto) 0.4 (0-4.4) % Baso % (Auto) 0.3 (0.2-1.2) % Lymph # (Auto) 1.43 (0.9-3.2) K/mm3 [place] # (Auto) 0.5 (0.1-0.6) K/mm3 Eos # (Auto) 0.0 (0-0.3) K/mm3 Baso # (Auto) 0.0 (0.0-0.1) K/mm3 Abs Immat Gran (auto) 0.02 (0.00-0.031) K/mm3 Absolute Neuts (auto) 5.0 (1.3-6.7) K/mm3 Absolute Nucleated RBC 0.000 (0.0-0.012) K/mm3 Nucleated RBC % 0.0 (0.0-0.2) % Sodium 138 (137-145) mmol/L Potassium 3.5 (3.4-5.0) mmol/L Chloride 101 (98-107) mmol/L Carbon Dioxide 25 (22-30) mmol/L Anion Gap 12 (4-12) mmol/L BUN 21 H (9-20) mg/dL Creatinine 0.88 (0.7-1.3) mg/dL Estim Creat Clear Calc 150 ml/min Estimated GFR > 60 (59 - ) Glucose 86 (65-110) mg/dL Calcium 8.6 (8.4-10.2) mg/dL Total Bilirubin 0.6 (0.2-1.3) mg/dL AST 37 (17-59) U/L ALT 67 H (6-50) U/L Alkaline Phosphatase 63 (38-126) U/L Total Protein 7.0 (6.3-8.2) g/dL Albumin 4.2 (3.5-5.1) g/dL Imaging Data My impression: Chest x-ray: No acute cardiopulmonary process. Discharge Plan Discharge Clinical Impression: Bronchitis Patient Disposition: Home, Self-Care Condition: Stable Instructions: Acute Bronchitis (ED) Additional Instructions: Please return to the emergency department if you develop severe and persistent chest pain, difficulty breathing, dizziness, leg swelling or if you are coughing up blood as these can be signs of a medical emergency. Please call your doctor for a follow up appointment to determine the need for further testing. Patient Language: Lebanese Prescriptions: New ipratropium-albuterol 0.5 mg-3 mg(2.5 mg base)/3 mL solution for nebulization 3 ml inhalation QID PRN (Reason: shortness of breath) Qty: 90 0RF prednisone 50 mg tablet 50 mg PO DAILY Qty: 7 0RF No Action lorazepam [Ativan] 0.5 mg tablet 0.5 mg PO BID PRN (Reason: agitation) Qty: 14 0RF hydrocodone-acetaminophen 5-325 mg tablet 1 tablet PO Q6H PRN (Reason: pain, moderate) Qty: 10 0RF amoxicillin-pot clavulanate 875-125 mg tablet 1 tablet PO Q12H Qty: 20 0RF cefdinir 300 mg capsule 300 mg PO Q12H Qty: 10 0RF Follow-up/Referrals: [place],Yogi Davis MD [Primary Care Provider] - 1 Week
[2024-12-23 01:18] VITALS: BP 144/72; PULSE 98; RESP 16; O2SAT 100
== END 2024-12-23 01:20 | disposition home or self-care (01) ==
PROVIDERS: Emergency Provider Emergency Medicine; PCP Family Medicine
DX: J45.909 Unspecified asthma, uncomplicated (principal); F84.0 Autistic disorder; F41.9 Anxiety disorder, unspecified
CPT/HCPCS: 36415; 71046; 80053; 85025; 94640; 99283

== ENCOUNTER 2025-09-01 01:20 | Emergency (ER) | payer OTHER, SELFPAY ==
--- NOTE | ~2025-09-01 | XR_ITS ---
EXAMINATION: XR foot LT min 3V, 09/01/2025 1:54 CDT HISTORY: injury, pain COMPARISON: No comparisons available. Findings: No acute fracture or malalignment. No significant degenerative changes. Soft tissues unremarkable. Impression: No acute fracture or malalignment. Reviewed, dictated and finalized at location P. Impression: No acute fracture or malalignment.
[2025-09-01 01:25] VITALS: BP 135/93; PULSE 82; RESP 18; TEMP 36.2; O2SAT 100
[2025-09-01 06:11] VITALS: BP 138/85; PULSE 78; RESP 18; O2SAT 100
--- NOTE | 2025-09-01 07:31 | ED_ITS ---
HPI - General Adult General Chief complaint: Extremity Injury, Lower Stated complaint: L foot injury Time Seen by Provider: 09/01/25 06:51 History of Present Illness HPI narrative: A 25-year-old male with autism presenting with foot pain. Patient was walking up the stairs when he kicked the step in front of and fell forward. He now has pain at the base of his 2nd 3rd and 4th toe. No other injuries. Related Data Allergies Allergy/AdvReac Type Severity Reaction Status Date / Time ibuprofen Allergy Mild HIVES Verified 12/22/24 23:46 [facility] Past Medical History Medical History (Updated 09/01/25 @ 07:33 by Partha Cabrera MD) Asthma Anxiety Autism Social History Social History Smoking status: Never smoker Substance use type: does not use Exam Narrative: APPEARANCE: No apparent distress. Head: atraumatic. EYES: EOMI, NOSE: Atraumatic NECK: Trachea midline RESPIRATORY: No increased rate of breathing CARDIOVASCULAR: RRR, ABDOMINAL: Non-distended MUSCULOSKELETAl: Focal exam of the left foot revealed no obvious deformities. There is some tenderness over the distal metacarpals of 2nd 3rd and 4th toe. No tenderness over the lateral malleoli base of the 5th metacarpal. No tenderness with compression of the midfoot. NEURO: Alert. Moving 4/4 extremities SKIN:: Warm, dry. Normal color PSYCHIATRIC: Normal affect Course Vital Signs Vital signs: Vital Signs Temperature 97.2 F L 09/01/25 01:25 Pulse Rate 82 09/01/25 01:25 Respiratory Rate 18 09/01/25 01:25 Blood Pressure 135/93 H 09/01/25 01:25 Pulse Oximetry 100 09/01/25 01:25 Oxygen Delivery Room Air 09/01/25 01:25 Temperature 97.2 F L 09/01/25 01:25 Pulse Rate 78 09/01/25 06:11 Respiratory Rate 18 09/01/25 06:11 Blood Pressure 138/85 09/01/25 06:11 Pulse Oximetry 100 09/01/25 06:11 Oxygen Delivery Room Air 09/01/25 01:25 Medical Decision Making [facility] Narrative Medical decision making narrative: -Course: 25-year-old male presenting with foot pain. X-rays negative for fracture per my interpretation. Official read will occur in the morning. Patient discharged with Tylenol. Given return precautions. -DDX includes but is not limited to: Fracture, sprain Vital Signs Vital Signs: Vital Signs Temperature 97.2 F L 09/01/25 01:25 Pulse Rate 82 09/01/25 01:25 Respiratory Rate 18 09/01/25 01:25 Blood Pressure 135/93 H 09/01/25 01:25 Pulse Oximetry 100 09/01/25 01:25 Oxygen Delivery Room Air 09/01/25 01:25 Temperature 97.2 F L 09/01/25 01:25 Pulse Rate 78 09/01/25 06:11 Respiratory Rate 18 09/01/25 06:11 Blood Pressure 138/85 09/01/25 06:11 Pulse Oximetry 100 09/01/25 06:11 Oxygen Delivery Room Air 09/01/25 01:25 Discharge Plan Discharge Clinical Impression: Acute foot pain Patient Disposition: Home Condition: Stable Instructions: Antibiotic Form, Metatarsalgia (DC) Additional Instructions: You were seen in the emergency department for foot pain. Your x-rays did not show any fractures. Please take Tylenol for pain. Follow-up with your primary care physician if your pain does not improve in 1 week. Patient Language: Belarusian Prescriptions: No Action lorazepam [Ativan] 0.5 mg tablet 0.5 mg PO BID PRN (Reason: agitation) Qty: 14 0RF hydrocodone-acetaminophen 5-325 mg tablet 1 tablet PO Q6H PRN (Reason: pain, moderate) Qty: 10 0RF amoxicillin-pot clavulanate 875-125 mg tablet 1 tablet PO Q12H Qty: 20 0RF cefdinir 300 mg capsule 300 mg PO Q12H Qty: 10 0RF ipratropium-albuterol 0.5 mg-3 mg(2.5 mg base)/3 mL solution for nebulization 3 ml inhalation QID PRN (Reason: shortness of breath) Qty: 90 0RF prednisone 50 mg tablet 50 mg PO DAILY Qty: 7 0RF Follow-up/Referrals: Bertha,Yogi Davis MD [Primary Care Provider] - 1 Week Referral Note: Foot pain
== END 2025-09-01 07:52 | disposition home or self-care (01) ==
PROVIDERS: Emergency Provider Emergency Medicine; PCP Family Medicine
DX: S99.922A Unspecified injury of left foot, initial encounter (principal); J45.909 Unspecified asthma, uncomplicated; F84.0 Autistic disorder; F41.9 Anxiety disorder, unspecified; W22.8XXA Striking against or struck by other objects, initial encounter
CPT/HCPCS: 73630; 99283